=== PATIENT | male | born 1950 | race Caucasian/White ===

== ENCOUNTER 2017-07-27 14:17 | Emergency (ER) | payer MEDICARE, BC ==
[2017-07-27 15:08] VITALS: BP 157/103
--- NOTE | 2017-07-27 15:31 | RAD ---
Indication: Fall, right shoulder pain. 4 views of the right shoulder demonstrates AC joint arthritis. There is a superiorly subluxed humeral head. No fracture is noted. IMPRESSION: AC joint arthritis without evidence of fracture.
--- NOTE | 2017-07-27 16:09 | UC ---
Shoulder Pain HPI - HPI Summary HPI Summary: Pt presents with right shoulder pain s/p fall earlier today. He tells me that he is very active and was building a tree house. He was carrying materials down some steps and missed the last step. Fell forward and hit his head on the sheet rock and landed on his right shoulder. No LOC. Currently has no headache, vision changes, or dizziness. He is concerned about his right shoulder. Says he has a history of arthritis and decreased ROM - but after this fall his pain is increased and ROM is significantly less. - History of Current Complaint Chief Complaint: UCUpperExtremity Stated Complaint: shoulder INJURY Time Seen by Provider: 07/27/17 16:08 Hx Obtained From: Patient Onset/Duration: Sudden Onset Timing: Constant Severity Initially: Moderate Severity Currently: Moderate Pain Intensity: 4 Pain Scale Used: 0-10 Numeric Character: Aching, Throbbing, Stiffness Aggravating Factor(s): Movement Alleviating Factor(s): Rest - Allergies/Home Medications Allergies/Adverse Reactions: Allergies Allergy/AdvReac Type Severity Reaction Status Date / Time No Known Allergies Allergy Verified 07/27/17 15:08 Home Medications: Home Medications Finasteride TAB* [Proscar TAB*] 1 tab PO DAILY 07/27/17 [History Confirmed 07/27] Levothyroxine TAB* [Synthroid TAB*] 1 tab PO DAILY 07/27/17 [History Confirmed 07/27/17] PMH/Surg Hx/FS Hx/Imm Hx Previously Healthy: Yes Endocrine History: Hypothyroidism - Surgical History Surgical History: Yes Surgery Procedure, Year, and Place: Bilateral knee replacement, hernia, shoulder , appendix - Family History Known Family History: Positive: None - Social History Occupation: Retired Lives: With Family Alcohol Use: Occasionally Substance Use Type: None Smoking Status (MU): Never Smoked Tobacco - Immunization History Most Recent Influenza Vaccination: 2014/2015 in a quadrivalent flu study Review of Systems Constitutional: Negative Skin: Negative Respiratory: Negative Cardiovascular: Negative Gastrointestinal: Negative Neurovascular: Negative Musculoskeletal: Decreased ROM - Right shoulder, Other: - Right shoulder pain Neurological: Negative Psychological: Negative All Other Systems Reviewed And Are Negative: Yes Physical Exam Triage Information Reviewed: Yes Appearance: Well-Appearing, No Pain Distress, Well-Nourished Vital Signs: Initial Vital Signs Temp 98.6 F 07/27/17 15:03 Pulse 56 07/27/17 15:03 Resp 16 07/27/17 15:03 BP 157/103 07/27/17 15:03 Pulse Ox 98 07/27/17 15:03 Vital Signs Reviewed: Yes Neck: Positive: Supple, No Lymphadenopathy, Other: - FROM. NTTP Respiratory: Positive: Lungs clear, Normal breath sounds, No respiratory distress, No accessory muscle use Cardiovascular: Positive: RRR, No Murmur, Pulses Normal Musculoskeletal: Positive: No Edema, Other: - Right shoulder: TTP over anterior right shoulder. Decreased ROM due to pain. Flexion to 30deg before pain. No edema or obvious bony deformities. Unable to perform specialized testing due to pain and decreased ROM. Neurological: Positive: Alert, Other: - Sensations intact C4-T1 b/l UEs. A&Ox3. 3 word recall, remote, recent memory, ability to follow 2-step directions, and attention intact. CN II XII grossly intact. [id number] are intact. Gait with normal base. Romberg: maintains balance, no pronator drift. Normal speech. No facial drooping. Psychological: Positive: Age Appropriate Behavior Skin: Negative: rashes, significant lesion(s) Shoulder Course/Dx - Course Course Of Treatment: XR: IMPRESSION: AC joint arthritis without evidence of fracture. Suspect strain vs RTC injury. Pt currently sees Orthopedics for this shoulder and will schedule a f/u. - Differential Dx/Diagnosis Provider Diagnoses: Right shoulder pain. Fall Discharge - Discharge Plan Condition: Stable Disposition: HOME Patient Education Materials: Rotator Cuff Injury (ED) Referrals: Kj Ray MD [Primary Care Provider] - Additional Instructions: If you develop a fever, shortness of breath, chest pain, new or worsening symptoms - please call your PCP or go to the ED. Your blood pressure was high at todays visit. Please see your primary provider within 4 weeks for recheck and re-evaluation. 1) Please follow up with Orthopedics when you return from [facility]!
== END 2017-07-27 16:25 | disposition home or self-care (01) ==
LOC: UCEAST 14:17
DX: M25.511 Pain in right shoulder (principal); M19.011 Primary osteoarthritis, right shoulder; E03.9 Hypothyroidism, unspecified; Z96.653 Presence of artificial knee joint, bilateral
CPT/HCPCS: 99211; G0463